=== PATIENT | female | born 1985 | race Caucasian/White ===

== ENCOUNTER 2021-05-01 09:16 | Emergency (ER) | payer MEDICAID, SELFPAY ==
--- NOTE | ~2021-05-01 | XR_ITS ---
EXAMINATION: XR chest 1V portable EXAM DATE: 05/01/2021 11:04 INDICATION: chest pain, cough and sob . TECHNIQUE: Portable AP frontal chest x-ray was obtained. There is no prior study for comparison. FINDINGS: The lungs are clear. There are no pleural effusions. The cardiomediastinal silhouette is within normal limits. There is no pneumothorax suspected. The bones and soft tissues are unremarkab le. IMPRESSION: Unremarkable chest x-ray exam. Reviewed, dictated and finalized at location B. [employer]
[2021-05-01 09:26] VITALS: BP 138/95; PULSE 80; RESP 14; TEMP 36.6; O2SAT 100
[2021-05-01 09:33] VITALS: BP 133/99; PULSE 78; RESP 18; TEMP 35.9; O2SAT 98
--- NOTE | 2021-05-01 10:50 | ECG_ITS ---
Measurements Intervals [place] Rate: 61 P: 22 [place]: 141 QRS: 47 QRSD: 75 T: 39 QT: 416 QTc: 422 Interpretive Statements SINUS RHYTHM EARLY PRECORDIAL R/S TRANSITION BASELINE ARTIFACT- I, II, III BORDERLINE ECG Electronically Signed On 05-01-2021 12:00:24 [employer] by Rodney Rivas D.O.
--- NOTE | 2021-05-01 10:51 | ED.GENADULT ---
HPI - General Adult General Chief complaint: Upper Respiratory Infection Stated complaint: cough/congestion Time Seen by Provider: 05/01/21 09:38 Source: patient Mode of arrival: ambulatory Limitations: no limitations History of Present Illness HPI narrative: Patient presents for evaluation of cough for the last 5 days. She indicates she initially had some sinus congestion and drainage and subsequently noted chest congestion and productive cough of white/green sputum. She states she has episodes of vomiting during heavy coughing spells however she does not feel nauseated. During coughing episodes she does feel SOB but does not feel SOB otherwise. She also has pleuritic chest pain that she describes as burning. She does not have chest pain otherwise. She has had some diarrhea the past two days. She had some blood-tinged sputum during a coughing episode, which prompted her to come in today, She denies any fever or chills. No sore throat or otalgia. No recent sick contacts. She has received COVID vaccinations. She does not smoke. No additional complaints or concerns. Related Data Allergies Allergy/AdvReac Type Severity Reaction Status Date / Time No Known Allergies Allergy Verified 05/01/21 09:38 Review of Systems Review of Systems: CONSTITUTIONAL: Denies fever, chills, or sweats. EYES: Denies visual changes, redness, or discharge. ENT: Denies rhinorrhea, congestion, sore throat, or otalgia. CARDIOVASCULAR: Reports pleuritic chest pain. Denies chest pain otherwise. Denies palpitations, or edema. RESPIRATORY: Reports productive cough of white/green sputum. Reports a few episodes of blood-tinged sputum. Denies hemoptysis otherwise. Reports SOB during episodes of heavy coughing. Denies SOB otherwise GASTROINTESTINAL: Denies abdominal pain, nausea, vomiting, or diarrhea. GENITOURINARY: Denies dysuria or hematuria. SKIN: Denies rash or itching. MUSCULOSKELETAL: Denies back pain, joint pain, or myalgia. NEUROLOGIC: Denies headache, numbness, dizziness, or weakness. PSYCHIATRIC: Denies anxiety or depression. [facility] [place] Past Medical History Medical History (Updated 05/01/21 @ 12:09 by Evaristo Montgomery, [place], ) No pertinent past medical history Surgical History Surgical History History of delivery Family History Family History Mother Family history non-contributory Social History Social History Smoking status: Never smoker Substance use: never Living arrangements: with family Gender identity (if verbalized by the patient): Female Sexual Orientation (if Verbalized by the Patient): Straight or Heterosexual Spiritual care concerns: No Exam Narrative: GENERAL: Well-appearing, well-nourished, and in no acute distress. HEAD: Normocephalic, atraumatic. EYES: PERRLA and EOMI. ENT: Nares clear, no rhinorrhea or epistaxis. Mucous membranes moist. Oropharynx without tonsillar hypertrophy exudate or other lesions. Bilateral TMs pearly rogers nonbulging NECK: Supple. No adenopathy or masses. No carotid bruits or JVD CHEST: Clear to auscultation. Cough present on exam. No respiratory distress. No wheezes rales or rhonchi HEART: Regular rate and rhythm. No murmur heard. Normal peripheral pulses. ABDOMEN: Soft, nontender, nondistended, normal active bowel sounds. EXTREMITIES: Normal range of motion. No edema. SKIN: Warm, dry, no rash. NEURO: No focal deficits. Alert and oriented x3. PSYCH: Normal mood and affect. Course Course Emergency Course: This is a 36-year-old female who presented with complaints of cough and pleuritic chest pain. Chest x-ray was negative. EKG with no acute ischemic changes. She has mild elevation of a few liver enzymes. I suspect that she probably has Covid. Saturations were normal on RA. Pt in no ap
[2021-05-01 11:19] LABS: Basophils Percent Auto 0.6 % (0.2-1.2); Eosinophils Absolute Auto 0.3 K/mm3 (0-0.3); Eosinophils Percent Auto 4.7 % (0-4.4); Hematocrit 40.9 % (37.0-47.0); Hemoglobin 14.2 g/dL (12.0-15.0); Immature Granulocyte Absolute 0.06 K/mm3 (0.00-0.031); Immature Granulocyte Percent A 0.9 % (0-0.5); Lymphocytes Absolute Auto 2.04 K/mm3 (0.9-3.2); Lymphocytes Percent Auto 29.8 % (18.3-44.2); Mean Corpuscular HGB Conc 34.7 g/dl (32-36); Mean Corpuscular Hemoglobin 30.7 pg (26-34); Mean Corpuscular Volume 88.3 fl (80-100); Monocytes Absolute Auto 0.7 K/mm3 (0.1-0.6); Monocytes Percent Auto 10.1 % (2.6-8.5); Neutrophils Absolute Auto 3.7 K/mm3 (1.3-6.7); Neutrophils Percent Auto 53.9 % (45.5-73.1); Platelet Count Result 242 k/mm3 (150-375); Red Blood Count 4.63 M/mm3 (4.2-5.4); White Blood Count 6.9 K/mm3 (4.5-10.0)
[2021-05-01 11:34] LABS: Alanine Aminotransferase 71 U/L (4-35); Albumin Level 4.4 g/dL (3.5-5.1); Alkaline Phosphatase 68 U/L (38-126); Anion Gap 8 mmol/L (8-16); Aspartate Amino Transferase 38 U/L (14-36); Bilirubin,Total 1.7 mg/dL (0.2-1.3); Blood Urea Nitrogen 14 mg/dL (7-17); Calcium 8.9 mg/dL (8.4-10.2); Carbon Dioxide 22 mmol/L (22-30); Chloride 106 mmol/L (98-107); Estimated CRCL calculation 100 ml/min; Estimated Glomerular Filt Rate > 60; Glucose 109 mg/dL (65-110); Potassium 3.8 mmol/L (3.4-5.0); Sodium 136 mmol/L (137-145)
[2021-05-01 11:46] LABS: Troponin I < 0.012 ng/mL (0.000-0.034)
[2021-05-01 12:07] VITALS: BP 132/78; PULSE 80; RESP 18; TEMP 36.7; O2SAT 97
[2021-05-02 16:42] LABS: SARS-CoV-2 RNA PCR Negative
== END 2021-05-01 12:25 | disposition home or self-care (01) ==
PROVIDERS: Emergency Provider Nurse Practitioner
DX: B34.9 Viral infection, unspecified (principal); R07.81 Pleurodynia; Z20.822 Contact with and (suspected) exposure to COVID-19; R94.31 Abnormal electrocardiogram [ECG] [EKG]
CPT/HCPCS: 36415; 71045; 80053; 81025; 84484; 85025; 87804; 93005; 99283; C9803; U0003; U0005

== ENCOUNTER 2021-10-03 11:00 | Emergency (ER) | payer OTHER, MEDICAID, SELFPAY ==
--- NOTE | ~2021-10-03 | XR_ITS ---
EXAMINATION: XR hand LT min 3V DATE: 10/03/2021 11:27 INDICATION: Wound to left posterior thumb. TECHNIQUE: 3 views of left hand were obtained. COMPARISON: None. FINDINGS: Bone alignment is normal. No fracture. Joint spaces are well maintained. IMPRESSION: 1. No fracture or radiopaque foreign body. Reviewed, dictated and finalized at location A.
[2021-10-03 11:03] VITALS: BP 145/97; PULSE 92; RESP 18; TEMP 36.2; O2SAT 100
--- NOTE | 2021-10-03 11:36 | ED.UPPEXIN ---
HPI - Extremity Injury (Upper) General Chief Complaint: Extremity Injury, Upper Stated Complaint: laceration to left hand at work Time Seen by Provider: 10/03/21 11:18 History of Present Illness HPI narrative: 32-year-old room 6-year-old female presents to the emergency room for evaluation of laceration to her left hand. Patient states that she was attempting to flush the toilet, when the handle became stuck causing her thumb to get caught in between the handle and the tank. When patient removed hand she cut the backside of her left hand. States tetanus is not up-to-date. Related Data Home Medications Medication Instructions Recorded Confirmed No Home Medications 10/03/21 10/03/21 Allergies Allergy/AdvReac Type Severity Reaction Status Date / Time No Known Allergies Allergy Verified 10/03/21 11:10 Review of Systems Review of Systems: CONSTITUTIONAL: Denies fever, chills, or sweats. EYES: Denies visual changes, redness, or discharge. ENT: Denies rhinorrhea, congestion, sore throat, or otalgia. CARDIOVASCULAR: Denies chest pain, palpitations, or edema. RESPIRATORY: Denies cough or dyspnea. GASTROINTESTINAL: Denies abdominal pain, nausea, vomiting, or diarrhea. GENITOURINARY: Denies dysuria or hematuria. SKIN: Reports skin avulsion to left hand MUSCULOSKELETAL: Denies back pain, joint pain, or myalgia. NEUROLOGIC: Denies headache, numbness, dizziness, or weakness. PSYCHIATRIC: Denies anxiety or depression. PMFSH Past Medical History Medical History No pertinent past medical history Surgical History Surgical History History of delivery Family History Family History Mother Family history non-contributory Social History Social History Smoking status: Never smoker Substance use: never Gender identity (if verbalized by the patient): Female Sexual Orientation (if Verbalized by the Patient): Straight or Heterosexual Spiritual care concerns: No Exam Narrative: GENERAL: Well-appearing, well-nourished, no physical limitations, and in no acute distress. HEAD: Normocephalic, atraumatic. EYES: Conjunctivae normal, PERRLA and EOMI. CHEST: Clear to auscultation. No respiratory distress. No wheezes rales or rhonchi. No tenderness. HEART: Regular rate and rhythm. No murmur heard. Normal peripheral pulses. EXTREMITIES: Normal range of motion. No edema. No clubbing or cyanosis SKIN: Left hand: Skin avulsion to the dorsal surface over the proximal end of the second metacarpal NEURO: No focal deficits. Alert and oriented x3. MAEW. CN's II-XI intact bilaterally, normal gait PSYCH: Cooperative. Normal mood and affect. Course Vital Signs Vital signs: Vital Signs Temperature 36.2 C L 10/03/21 11:03 Pulse Rate 92 10/03/21 11:03 Respiratory Rate 18 10/03/21 11:03 Blood Pressure 145/97 H 10/03/21 11:03 Pulse Oximetry 100 10/03/21 11:03 Oxygen Delivery Room Air 10/03/21 11:03 Temperature 36.2 C L 10/03/21 11:03 Pulse Rate 92 10/03/21 11:03 Respiratory Rate 18 10/03/21 11:03 Blood Pressure 145/97 H 10/03/21 11:03 Pulse Oximetry 100 10/03/21 11:03 Oxygen Delivery Room Air 10/03/21 11:03 Discharge Plan Discharge Clinical Impression: Avulsion of skin Patient Disposition: Home, Self-Care Condition: Stable Instructions: Antibiotic Form, Skin Avulsion (ED) Additional Instructions: Dressing should come off in 48 hours. Leave wound open and dry. Do not expose your wound to dirty water. Your wound will scab over and your skin will be created in the next 1 to 2 weeks. Prescriptions: No Action No Home Medications Follow-up/Referrals: PHYSICIAN NOT ON STAFF,NONSTAFF [Primary Care Provider] - Time of Dispositio
[2021-10-03] MEDS: TETANUS,DIPHTHERIA,AC PERTUSSIS ADULT (0.5 ML) BOOSTRIX IM (11:38)
[2021-10-03] MEDS: CELLULOSE OXIDIZED 2 x 14 INCH 1 PKT XX (11:39)
== END 2021-10-03 11:57 | disposition home or self-care (01) ==
PROVIDERS: Emergency Provider Nurse Practitioner Family
DX: S61.412A Laceration without foreign body of left hand, initial encounter (principal); Z23 Encounter for immunization; W45.8XXA Other foreign body or object entering through skin, initial encounter
CPT/HCPCS: 73130; 90471; 90715; 99283

== ENCOUNTER 2023-05-08 09:40 | Emergency (ER) | payer OTHER, SELFPAY ==
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
[2023-05-08 09:41] VITALS: BP 149/98; PULSE 75; RESP 18; TEMP 36.8; O2SAT 100
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
== END 2023-05-08 13:52 | disposition home or self-care (01) ==
LOC: ANHED 13:51
PROVIDERS: Emergency Provider Nurse Practitioner Family
DX: S16.1XXA Strain of muscle, fascia and tendon at neck level, initial encounter (principal); S10.91XA Abrasion of unspecified part of neck, initial encounter; V44.5XXA Car driver injured in collision with heavy transport vehicle or bus in traffic accident, initial encounter
CPT/HCPCS: 72125; 99284